=== PATIENT | female | born 1980 | race African-American/Black ===

== ENCOUNTER 2018-01-11 13:00 | Emergency (ER) | payer OTHER ==
[2018-01-11 13:19] VITALS: BMI 29.2
[2018-01-11] MEDS ORDERED: SODIUM CHLORIDE 1,000 ML IV STA (16:50)
[2018-01-11] MEDS ORDERED: ACETAMINOPHEN 1000 MG/100 ML VIAL (NON FORMULARY) IVPB ONE (16:50)
--- NOTE | 2018-01-11 17:09 | PDOC ---
History of Present Illness - General Chief Complaint: Headache Stated Complaint: HEADACHE Time Seen by Provider: 01/11/18 14:53 History Source: Patient Exam Limitations: No Limitations - History of Present Illness Initial Comments: 01/11/18 17:01 Patient is a 37F (2 NSVDs) with history of gestational diabetes here today complaining of lower abdominal pain and hemorrhoids for the past 5 days. Patient gave 9 days ago without complications. Patient endorses associated dysuria. Patient's OB is at [facility]. Endorses pain with defecation. Denies prior abdominal surgery. States that she is going through 2 pads of bleeding per day, denies odorous discharge. Past History - Past Medical History Allergies/Adverse Reactions: Allergies Allergy/AdvReac Type Severity Reaction Status Date / Time No Known Allergies Allergy Verified 01/11/18 13:16 Home Medications: Ambulatory Orders Cephalexin Monohydrate [Keflex -] 500 mg PO BID #10 capsule 01/11/18 Phenylephrine 0.25%/Starch [Anusol Suppository -] 1 each RC BID #10 supp COPD: No Other medical history: fibroids, gestational diabetes - Suicide/Smoking/Psychosocial Hx Smoking History: Never smoked Review of Systems - Review of Systems Comments:: 01/11/18 17:09 GENERAL/CONSTITUTIONAL: No fever or chills. No weakness. HEAD, EYES, EARS, NOSE AND THROAT: No change in vision. No sore throat. CARDIOVASCULAR: No chest pain or shortness of breath RESPIRATORY: No cough, wheezing, or hemoptysis. GASTROINTESTINAL: No nausea, vomiting, diarrhea or constipation. GENITOURINARY: +dysuria, frequency, or change in urination. MUSCULOSKELETAL: No joint or muscle swelling or pain. No neck or back pain. SKIN: No rash NEUROLOGIC: No headache, vertigo, loss of consciousness, or change in strength/ sensation. ENDOCRINE: No increased thirst. No abnormal weight change HEMATOLOGIC/LYMPHATIC: No anemia, easy bleeding, or history of blood clots. ALLERGIC/IMMUNOLOGIC: No hives or skin allergy. *Physical Exam - Vital Signs Last Vital Signs Temp Pulse Resp BP Pulse Ox 97.5 F L 49 L 18 127/73 100 01/11/18 13:17 01/11/18 13:17 01/11/18 13:17 01/11/18 13:17 01/11/18 13:17 - Physical Exam Comments: 01/11/18 17:10 GENERAL: Awake, alert, and fully oriented, in no acute distress HEAD: No signs of trauma, normocephalic, atraumatic EYES: PERRLA, EOMI, sclera anicteric, conjunctiva clear ENT: Auricles normal inspection, hearing grossly normal, nares patent, oropharynx clear without exudates. Moist mucosa NECK: Normal ROM, supple, no lymphadenopathy, JVD, or masses LUNGS: No distress, speaks full sentences, clear to auscultation bilaterally HEART: Regular rate and rhythm, normal S1 and S2, no murmurs, rubs or gallops, peripheral pulses normal and equal bilaterally. ABDOMEN: Soft, +suprapubic tenderness, normoactive bowel sounds. No guarding, no rebound. EXTREMITIES: Normal inspection, Normal range of motion, no edema. No clubbing or cyanosis. NEUROLOGICAL: Cranial nerves II through XII grossly intact. Normal speech, normal gait, no focal sensorimotor deficits SKIN: Warm, Dry, normal turgor, no rashes or lesions noted. : Shows normal external genitalia, closed os, moderate blood, no cmt RECTAL: Several hemorrhoids, largest 4x1cm, tender, non-thrombosed. ED Treatment Course - LABORATORY CBC & Chemistry Diagram: 01/11/18 17:20 01/11/18 17:20 - RADIOLOGY Radiology Studies Ordered: Category Date Time Status PELVIC / BLADDER US [US] Stat Ultrasound 01/11/18 16:51 Ordered Medical Decision Making - Medical Decision Making 01/11/18 17:10 Patient is a 37F who gave 9 days ago here today with suprapubic pain. Vitals normal and stable. DDx includes, but is not limited to: UTI, retained products, hemorrhoid, endometritis. Will workup with cbc, cmp, ua/uc, lipase, pelvic us. Will treat pain with tylenol. Will treat hemorrhoid with topical lidocaine. 01/11/18 19:07 CBC normal. CMP reassuring. Lipase negative. UA shows 11wbcs and 2+ LE. Will treat with keflex. US shows uterus, no retained products. Will have patient follow up with OB. *DC/Admit/Observation/Transfer Diagnosis at time of Disposition: Acute hemorrhoid, UTI (urinary tract infection) - Discharge Dispostion Disposition: HOME Condition at time of disposition: Good Decision to Admit order: No - Referrals - Patient Instructions Printed Discharge Instructions: DI for Urinary Tract Infection (UTI), DI for Hemorrhoids Additional Instructions: Please return if you have any new, worsening or concerning symptoms, especially if you have fever, increasing pain, or chills. Please follow up with your OB this week. - Post Discharge Activity
[2018-01-11 17:12] LABS: URINE APPEARANCE CLEAR; URINE BILIRUBIN NEGATIVE (<2.0 mg/dL); URINE COLOR LTYELLOW; URINE GLUCOSE (UA) NEGATIVE (NEGATIVE); URINE KETONE NEGATIVE (NEGATIVE); URINE NITRITE NEGATIVE (NEGATIVE); URINE PROTEIN NEGATIVE (NEGATIVE); URINE UROBILINOGEN NEGATIVE mg/dL (0.2-1.0)
[2018-01-11 17:14] LABS: URINE LEUK ESTERASE 2+ (NEGATIVE)
--- NOTE | 2018-01-11 17:15 | PDOC ---
Attending Attestation - Resident Resident Name: Fabian Ludwig - ED Attending Attestation I have performed the following: I have examined & evaluated the patient, The case was reviewed & discussed with the resident, I agree w/resident's findings & plan, Exceptions are as noted - HPI HPI: 01/11/18 17:53 The patient is a 37 year old female, , with a significant past medical history of normal vaginal delivery 9 days ago, who presents to the emergency department with 5 days of rectal pain, dysuria, and lower abdominal pain since giving 9 days ago. She reports dysuria. She reports 2 pads of post- delivery vaginal bleeding. She denies flank pain. The patient denies chest pain, shortness of breath, headache and dizziness. The patient denies fever, chills, nausea, vomit, diarrhea and constipation. The patient denies frequency, urgency and hematuria. Allergies: NKDA - Physicial Exam PE: 01/11/18 17:53 General; no acute distress abd: no focal abd tenderness, no cva tenderness, no rebound, guarding RECTAL: noted for a firm external hemorroid, that is tender to raad touch, non bluish appearing - Medical Decision Making 01/11/18 17:27 37y F presenting with compaint of abd pelvic pain and painful hemorroids. pt also endorses mild headache without any vision changes, n/v, f/c. will obtain pelvic US to r/o endometriosis topical lido gel for hemorroid, high fiber diet, sitz bath no htn to suggest post eclampsia 01/11/18 18:53 pts UA suggestive of UTI - in lightof symptoms will treat awaiting US, if neg, anticipate dc with outpatient fu
[2018-01-11] MEDS ORDERED: ACETAMINOPHEN 500 MG TABLET (FP) PO ONE (17:20)
[2018-01-11 17:25] LABS: EPI CELLS RARE /HPF (FEW); URINE MUCUS RARE
[2018-01-11 17:25] LABS: EOS % 2.6 % (0-4.5); HEMATOCRIT 40.3 % (32.4-45.2); HEMOGLOBIN 12.8 GM/dL (10.7-15.3); LYMPH % 26.7 % (8-40); MCH 23.5 pg (25.7-33.7); MCHC 31.7 g/dl (32.0-36.0); MEAN CELL VOLUME 74.2 fl (80-96); MEAN PLT VOLUME 8.1 fl (7.5-11.1); MONO % 7.3 % (3.8-10.2); NEUT % 62.4 % (42.8-82.8); PLATELET COUNT 232 K/MM3 (134-434); RBC 5.43 M/mm3 (3.60-5.2); RDW 14.3 % (11.6-15.6); WHITE BLOOD COUNT 5.7 K/mm3 (4.0-10.0)
[2018-01-11] MEDS ORDERED: LIDOCAINE HCL 2% JELLY 10 ML CARTRIDGE PR ONE (17:26)
[2018-01-11] MEDS ORDERED: LIDOCAINE HCL 2% JELLY 10 ML CARTRIDGE ONE (17:46)
[2018-01-11] MEDS ORDERED: ACETAMINOPHEN 325 MG TABLET (FP) ONE (17:46)
[2018-01-11 18:01] LABS: ALBUMIN 3.1 g/dl (3.4-5.0); ALK PHOS 87 U/L (45-117); ANION GAP 8 MMOL/L (8-16); BILIRUBIN,TOTAL 0.2 mg/dL (0.2-1); BLOOD UREA NITROGEN 16 mg/dL (7-18); CALCIUM 8.4 mg/dL (8.5-10.1); CHLORIDE 110 mmol/L (98-107); CO2 23 mmol/L (21-32); CREATININE 0.8 mg/dL (0.55-1.3); GLUCOSE,RANDOM 108 mg/dL (74-106); LIPASE 222 U/L (73-393); POTASSIUM 3.6 mmol/L (3.5-5.1); SGOT/AST 23 U/L (15-37); SGPT/ALT 34 U/L (13-61); SODIUM 140 mmol/L (136-145); TOT PROT 6.9 g/dl (6.4-8.2)
[2018-01-11 19:17] LABS: PLATELET ESTIMATE ADEQUATE
[2018-01-11] MEDS ORDERED: CEPHALEXIN MONOHYDRATE 500 MG CAPSULE (UD) PO ONE (19:18)
[2018-01-11] MEDS ORDERED: CEPHALEXIN MONOHYDRATE 500 MG CAPSULE (UD) ONE (19:27)
[2018-01-11 19:38] VITALS: BP 130/70; PULSE 69; TEMP 98.1
== END 2018-01-11 19:30 | disposition home or self-care (01) ==
LOC: JER 13:00
DX: O86.29 Other urinary tract infection following delivery (principal); O87.2 Hemorrhoids in the puerperium
CPT/HCPCS: 36415; 76856-TC; 80053; 81003; 81015; 83690; 85025; 87086; 87186; 99282-25